=== PATIENT | female | born 2000 | race African-American/Black ===

== ENCOUNTER 2021-02-08 18:53 | Emergency (ER) | payer MEDICAID ==
[~2021-02-08] VITALS: Ht 167.6 cm; Wt 55.0 kg
[2021-02-08] MEDS ORDERED: IBUPROFEN 600MG TABLET PO ONE (21:15)
[2021-02-08] MEDS ORDERED: AMOXICILLIN 500 MG CAPSULE PO ONE (21:15)
[2021-02-08] MEDS ORDERED: ACETAMINOPHEN 325MG TABLET PO ONE (21:15)
[2021-02-08] MEDS ORDERED: METRONIDAZOLE 500MG TABLET PO ONE (21:15)
[2021-02-08] MEDS ORDERED: AMOX-494 MT (21:30)
[2021-02-08] MEDS ORDERED: METR-167 MT (21:30)
[2021-02-08 22:14] VITALS: BP 125/82
== END 2021-02-08 22:16 | disposition home or self-care (01) ==
LOC: ER 18:53
DX: J02.0 Streptococcal pharyngitis (principal); N76.0 Acute vaginitis
CPT/HCPCS: 87210; 87430; 99284

== ENCOUNTER 2021-06-05 19:46 | Emergency (ER) | payer MEDICAID ==
[~2021-06-05] VITALS: Ht 170.2 cm; Wt 59.0 kg
[~2021-06-05 19:46] MED LIST: AMOX-494 MT; METR-167 MT
[2021-06-05 21:04] VITALS: BP 117/82
[2021-06-05 22:06] LABS: CLARITY URINE CLOUDY (CLEAR); COLOR URINE YELLOW (YELLOW); KETONES URINE TRACE (NEGATIVE); LEUKOCYTE ESTERASE URINE NEGATIVE (NEGATIVE); NITRITE URINE NEGATIVE (NEGATIVE); OCCULT BLOOD URINE NEGATIVE (NEGATIVE); PROTEIN URINE TRACE (NEGATIVE); SPECIFIC GRAVITY URINE 1.035 (1.005-1.030)
[2021-06-05] MEDS ORDERED: METR-167 MT (22:18)
[2021-06-05] MEDS ORDERED: DOXY100C5 MT (22:21)
[2021-06-05] MEDS ORDERED: FLUCONAZOLE 100MG TABLET PO ONE (22:30)
[2021-06-05] MEDS ORDERED: CEFTRIAXONE SODIUM 500 MG/VIAL IM ONE (22:30)
== END 2021-06-05 23:22 | disposition home or self-care (01) ==
LOC: ER 19:46
DX: N89.8 Other specified noninflammatory disorders of vagina (principal)
CPT/HCPCS: 81003; 81025; 87210; 87491; 87591; 96372; 99283; J0696